=== PATIENT | male | born 1965 | race Hispanic/Latino ===

== ENCOUNTER 2018-09-02 12:03 | Emergency (ER) | payer OTHER ==
--- NOTE | 2018-09-02 14:18 | RAD REPORT ---
EXAM DESCRIPTION: RAD - Foot Left 3 View - 09/02/2018 1:47 pm CLINICAL HISTORY: Left Foot pain FINDINGS: No fracture or dislocation is seen. Hammertoe deformities. First phalanx resected. No bony destructive lesions seen. Vascular calcifications noted. Arthritic changes involve MTP joints
--- NOTE | 2018-09-02 14:25 | EDPHYS ---
Physician Documentation [facility] Name: Denis Bhatt Age: 53 yrs Sex: Male : 1965 Arrival Date: 09/02/2018 Time: 12:07 Bed 20 Private MD: ED Physician Josiah De La Fuente HPI: 09/02 14:29 This 53 yrs old Male presents to ER via Ambulatory with complaints of Foot jr8 pain. 14:29 Onset: The symptoms/episode began/occurred gradually, 1 month(s) ago, and became worse jr8 and became persistent. Associated signs and symptoms: The patient has no apparent associated signs or symptoms. Modifying factors: The patient symptoms are alleviated by nothing, the patient symptoms are aggravated by activity. It is unknown whether or not the patient has had similar symptoms in the past. The patient has not recently seen a physician. Stated that he had a nail go into his foot about 1 month ago. Stated that it barely broke skin. Since then noticed that the puncture site had not been healing well and now getting worse. History of diabetes . Historical: - Allergies: 12:21 No Known Allergies; aj - Home Meds: 12:21 metformin Oral [Active]; Novolog 100 unit/mL Sub-Q soln [Active]; Diazepam Oral aj [Active]; Lortab 7.5 Oral [Active]; atorvastatin oral oral [Active]; Unknown HTN med [Active]; gabapentin oral oral [Active]; - PMHx: 12:21 Hyperlipidemia; Hypertension; Diabetes - IDDM; Chronic pain; Pancreatitis; aj - PSHx: 12:21 Left great toe amputation; Cholecystectomy; aj - Immunization history:: Last tetanus immunization: up to date. - Social history:: Smoking status: Patient uses tobacco products, smokes one pack cigarettes per day. - Ebola Screening: : Patient negative for fever greater than or equal to 101.5 degrees Fahrenheit, and additional compatible Ebola Virus Disease symptoms Patient denies exposure to infectious person Patient denies travel to an Ebola-affected area in the 21 days before illness onset No symptoms or risks identified at this time. ROS: 14:29 Eyes: Negative for injury, pain, redness, and discharge, ENT: Negative for injury, jr8 pain, and discharge, Neck: Negative for injury, pain, and swelling, Cardiovascular: Negative for chest pain, palpitations, and edema, Respiratory: Negative for shortness of breath, cough, wheezing, and pleuritic chest pain, Abdomen/GI: Negative for abdominal pain, nausea, vomiting, diarrhea, and constipation, Back: Negative for injury and pain, MS/Extremity: Negative for injury and deformity, Neuro: Negative for headache, weakness, numbness, tingling, and seizure. 14:29 Skin: Positive for cellulitis. Exam: 14:29 Constitutional: This is a well developed, well nourished patient who is awake, alert, jr8 and in no acute distress. ENT: Nares patent. No nasal discharge, no septal abnormalities noted. Tympanic membranes are normal and external auditory canals are clear. Oropharynx with no redness, swelling, or masses, exudates, or evidence of obstruction, uvula midline. Mucous membranes moist. Neck: Trachea midline, no thyromegaly or masses palpated, and no cervical lymphadenopathy. Supple, full range of motion without nuchal rigidity, or vertebral point tenderness. No Meningismus. Cardiovascular: Regular rate and rhythm with a normal S1 and S2. No gallops, murmurs, or rubs. Normal PMI, no JVD. No pulse deficits. Respiratory: Lungs have equal breath sounds bilaterally, clear to auscultation and percussion. No rales, rhonchi or wheezes noted. No increased work of breathing, no retractions or nasal flaring. Abdomen/GI: Soft, non-tender, with normal bowel sounds. No distension or tympany. No guarding or rebound. No evidence of tenderness throughout. Back: No spinal tenderness. No costovertebral tenderness. Full range of motion. MS/ Extremity: Pulses equal, no cyanosis. Neurovascular intact. Full, normal range of motion. Neuro: Awake and alert, GCS 15, oriented to person, place, time, and situation. Cranial nerves II-XII grossly intact. Motor strength 5/5 in all extremities. Sensory grossly intact. Cerebellar exam normal. Normal gait. 14:29 Skin: Patient has old puncture lynne noted to sole of left foot. Localized infection surrounding puncture lynne noted. No diffuse cellulitis or streaking noted. No swelling to foot. Mild tenderness to affected region . Vital Signs: 12:21 BP 133 / 63; Pulse 99; Resp 20; Temp 97.3; Pulse Ox 98% on R/A; Weight 95.25 kg; Height aj 5 ft. 8 in. (172.72 cm); 14:32 BP 153 / 89; Pulse 88; Resp 17; Pulse Ox 98% on R/A; tw2 12:21 Body Mass Index 31.93 (95.25 kg, 172.72 cm) aj MDM: 13:10 Patient medically screened. jr8 14:24 Data reviewed: vital signs, nurses notes, radiologic studies, plain films, and as a jr8 result, I will discharge patient. Data interpreted: Pulse oximetry: on room air is 98 %. Interpretation: normal. Counseling: I had a detailed discussion with the patient and/or guardian regarding: the historical points, exam findings, and any diagnostic results supporting the discharge/admit diagnosis, radiology results, the need for outpatient follow up, a general surgeon, to return to the emergency department if symptoms worsen or persist or if there are any questions or concerns that arise at home. 09/02 12:28 Order name: Foot Left 3 View XRAY; Complete Time: 14:24 aj Administered Medications: 14:34 Drug: LevaQUIN 500 mg Route: PO; sv 14:34 Follow up: Response: Medication administered at discharge. sv 14:34 Drug: Bactrim (160 mg-800 mg (DS) 1 tablet Route: PO; sv 14:34 Follow up: Response: Medication administered at discharge. sv Disposition: 18:53 Co-signature as Attending Physician, Josiah De La Fuente MD I agree with the assessment and kdr plan of care. Disposition: 09/02/18 14:24 Discharged to Home. Impression: Local infection of the skin and subcutaneous tissue, unspecified. - Condition is Stable. - Discharge Instructions: Cellulitis, Adult, [id number]. - Prescriptions for Levaquin 500 mg Oral Tablet - take 1 tablet by ORAL route once daily for 7 days; 7 tablet. Bactrim DS 800- 160 mg Oral Tablet - take 1 tablet by ORAL route every 12 hours for 10 days; 20 tablet. - Medication Reconciliation Form, Thank You Letter, Antibiotic Education, Prescription Opioid Use form. - Follow up: Keny Neely MD; When: 2 - 3 days; Reason: Recheck today's complaints, Continuance of care, Re-evaluation by your physician. - Problem is new. - Symptoms have improved. Signatures: Dispatcher [employer] EDMS Lainey, SAILAJA Gonsalez RN, Amanda, RN RN aj Rittger, Kevin, MD MD kdr Roszak, Josh, PA PA jr8 Corrections: (The following items were deleted from the chart) 14:36 14:24 09/02/2018 14:24 Discharged to Home. Impression: Local infection of the skin and sv subcutaneous tissue, unspecified. Condition is Stable. Forms are Medication Reconciliation Form, Thank You Letter, Antibiotic Education, Prescription Opioid Use. Follow up: Keny Neely; When: 2 - 3 days; Reason: Recheck today's complaints, Continuance of care, Re-evaluation by your physician. Problem is new. Symptoms have improved. jr8
--- NOTE | 2018-09-02 14:25 | ER ---
Nurse's Notes [facility] Name: Denis Bhatt Age: 53 yrs Sex: Male : 1965 Arrival Date: 09/02/2018 Time: 12:07 Bed 20 Private MD: Diagnosis: Local infection of the skin and subcutaneous tissue, unspecified Presentation: 09/02 12:18 Presenting complaint: Patient states: Non healing wound to ball of left foot after nail aj puncture 1 month ago. Transition of care: patient was not received from another setting of care. Onset of symptoms was August 05, 2018. Risk Assessment: Do you want to hurt yourself or someone else? Patient reports no desire to harm self or others. Initial Sepsis Screen: Does the patient meet any 2 criteria? No. Patient's initial sepsis screen is negative. Does the patient have a suspected source of infection? No. Patient's initial sepsis screen is negative. Care prior to arrival: None. 12:18 Method Of Arrival: Ambulatory aj 12:18 Acuity: RORY 3 aj Triage Assessment: 12:21 General: Appears in no apparent distress. comfortable, Behavior is calm, cooperative, aj appropriate for age. Pain: Complains of pain in left foot. Neuro: Level of Consciousness is awake, alert, obeys commands, Oriented to person, place, time, situation, Appropriate for age. Respiratory: Airway is patent Respiratory effort is even, unlabored, Respiratory pattern is regular, symmetrical. Derm: Skin is intact, is healthy with good turgor, Skin is pink, warm \T\ dry. normal, Wound noted ball of left foot. Historical: - Allergies: 12:21 No Known Allergies; aj - Home Meds: 12:21 metformin Oral [Active]; Novolog 100 unit/mL Sub-Q soln [Active]; Diazepam Oral aj [Active]; Lortab 7.5 Oral [Active]; atorvastatin oral oral [Active]; Unknown HTN med [Active]; gabapentin oral oral [Active]; - PMHx: 12:21 Hyperlipidemia; Hypertension; Diabetes - IDDM; Chronic pain; Pancreatitis; aj - PSHx: 12:21 Left great toe amputation; Cholecystectomy; aj - Immunization history:: Last tetanus immunization: up to date. - Social history:: Smoking status: Patient uses tobacco products, smokes one pack cigarettes per day. - Ebola Screening: : Patient negative for fever greater than or equal to 101.5 degrees Fahrenheit, and additional compatible Ebola Virus Disease symptoms Patient denies exposure to infectious person Patient denies travel to an Ebola-affected area in the 21 days before illness onset No symptoms or risks identified at this time. Screenin:08 Abuse screen: Denies threats or abuse. Denies injuries from another. Nutritional sv screening: No deficits noted. Tuberculosis screening: No symptoms or risk factors identified. Fall Risk None identified. Assessment: 13:06 General: Appears in no apparent distress. comfortable, well developed, Behavior is sv calm, cooperative, appropriate for age. Pain: Denies pain. Neuro: Level of Consciousness is awake, alert, obeys commands, Oriented to person, place, time, situation, Moves all extremities. Full function Gait is steady, Speech is normal. Respiratory: Respiratory effort is even, unlabored, Respiratory pattern is regular, symmetrical. Derm: Skin is pink, warm \T\ dry. Wound noted ball of left foot Wound is part is callused and part is soft about an inch in length. Musculoskeletal: Amputation of healed with no open areas Range of motion: intact in all extremities. 14:35 Reassessment: Patient appears in no apparent distress at this time. No changes from sv previously documented assessment. Patient and/or family updated on plan of care and expected duration. Pain level reassessed. Patient is alert, oriented x 3, equal unlabored respirations, skin warm/dry/pink. Vital Signs: 12:21 BP 133 / 63; Pulse 99; Resp 20; Temp 97.3; Pulse Ox 98% on R/A; Weight 95.25 kg; Height aj 5 ft. 8 in. (172.72 cm); 14:32 BP 153 / 89; Pulse 88; Resp 17; Pulse Ox 98% on R/A; tw2 12:21 Body Mass Index 31.93 (95.25 kg, 172.72 cm) ED Course: 12:07 Patient arrived in ED. rg4 12:18 Triage completed. aj 12:21 Arm band placed on right wrist. Patient placed in waiting room, Patient notified of aj wait time. 12:56 Sunshine Retana, RN is Primary Nurse. sv 13:08 Patient has correct armband on for positive identification. Bed in low position. Door sv closed. Head of bed elevated. 13:09 Yoel Eason PA is PHCP. jr8 13:09 Josiah De La Fuente MD is Attending Physician. jr8 13:25 X-ray(s) taken. sv 13:36 X-ray completed. Portable x-ray completed in exam room. Patient tolerated procedure jb2 well. 13:48 Foot Left 3 View XRAY In Process Unspecified. EDMS 13:48 Foot Left 3 View XRAY Sent. sv 14:24 Keny Neely MD is Referral Physician. jr8 14:35 No provider procedures requiring assistance completed. Patient did not have IV access sv during this emergency room visit. Administered Medications: 14:34 Drug: LevaQUIN 500 mg Route: PO; sv 14:34 Follow up: Response: Medication administered at discharge. sv 14:34 Drug: Bactrim (160 mg-800 mg (DS) 1 tablet Route: PO; sv 14:34 Follow up: Response: Medication administered at discharge. sv Outcome: 14:24 Discharge ordered by MD. jr8 14:35 Discharged to home ambulatory, with family. sv 14:35 Condition: stable 14:35 Discharge instructions given to patient, Instructed on discharge instructions, follow up and referral plans. medication usage, Demonstrated understanding of instructions, follow-up care, medications, Prescriptions given X 2. 14:36 Patient left the ED. sv Signatures: Dispatcher [employer] Sunshine Curry RN RN sv Myers, Amanda RN Juan Antonio Hopson jb2 Yoel Eason PA PA jr8 Cecilia Strong RN RN 2 Mary Cordoba rg4 Corrections: (The following items were deleted from the chart) 12:24 12:21 Arm band placed on right wrist. Patient placed in an exam room, nury 13:09 13:06 Musculoskeletal: Range of motion: intact in all extremities, sv sv
[2018-09-02] MEDS ORDERED: levoFLOXacin 500 MG TAB ONE (14:40)
[2018-09-02] MEDS ORDERED: SMZ./TMP. 800/160 MG TABLET ONE (14:40)
== END 2018-09-02 14:36 | disposition home or self-care (01) ==
LOC: ER 12:03
DX: L08.9 Local infection of the skin and subcutaneous tissue, unspecified (principal); I10 Essential (primary) hypertension; E11.9 Type 2 diabetes mellitus without complications; F17.210 Nicotine dependence, cigarettes, uncomplicated; Z79.4 Long term (current) use of insulin
CPT/HCPCS: 99283

== ENCOUNTER 2019-05-09 10:43 | Inpatient (IN) | payer OTHER ==
[2019-05-09] MEDS ORDERED: PIPER/TAZO/NS 3.375gm 3.375 GM/100 ML BAG ONE (11:52)
[2019-05-09] MEDS ORDERED: VANCOMYCIN/NS 1 gm 1 GM/250 ML BAG IV ONE (12:00)
[2019-05-09 12:41] LABS: Absolute Lymphocytes (CBC) 1.5 K/uL (0.7-4.9); Basophils % 0.8 % (0-1.3); Hematocrit 36.1 % (39.6-49.0); Lymphocytes % 23.7 % (15.3-44.8); MPV 9.8 fL (7.6-11.3); RBC Red Blood Cell Count 4.16 M/uL (4.33-5.43)
[2019-05-09 12:42] LABS: Protime INR 0.83
[2019-05-09 13:15] LABS: ALT/SGPT 43 U/L (12-78); AST/SGOT 15 U/L (15-37); Albumin 3.3 g/dL (3.4-5.0); Alkaline Phosphatase 119 U/L (45-117); BUN Blood Urea Nitrogen 50 mg/dL (7-18); Bicarbonate 25 mmol/L (21-32); Bilirubin Direct < 0.1 mg/dL (0-0.2); Bilirubin Total 0.2 mg/dL (0.2-1.0); Glucose Level 701 mg/dL (74-106); Protein, Total 7.4 g/dL (6.4-8.2); Sodium Level 129 mmol/L (136-145)
[2019-05-09 13:18] LABS: Potassium 6.7 mmol/L (3.5-5.1)
[2019-05-09 13:20] LABS: Urine Blood TRACE (NEG); Urine Glucose 3+ (NEG); Urine Protein 1+ (NEG); Urine pH 6.5 (5.0-7.0)
--- NOTE | 2019-05-09 13:21 | RAD REPORT ---
EXAM DESCRIPTION: RAD - Foot Left 3 View - 05/09/2019 12:09 pm CLINICAL HISTORY: Soft tissue wound on the ball of the foot COMPARISON: Left foot August 2018 FINDINGS: No fracture is identified. Patient is in a chronic extension position of the second-fifth MTP joints. This is most pronounced at the second MTP joint were there is subluxation. Patient has ch ronic flexion at the PIP joints of the second- fifth toes. First toe has been resected. The alignment and positioning of the toes matches the 2018 comparison study. No destructive changes s een that would indicate osteomyelitis. Osteomyelitis can exist prior to radiographic bone destruction . Soft tissue wound is present between the first and second metatarsal heads. No foreign body in the soft tissues. IMPRESSION: No destructive bone process seen that would indicate osteomyelitis. Bone infection can e xist prior to radiographic bone destruction. Soft tissue wound in the plantar and distal aspects near the first and second metatarsal heads. No fo reign body or air confirmed in the soft tissues.
[2019-05-09] MEDS ORDERED: NA CHLORIDE 0.9% 1,000 ML ONE (13:50)
[2019-05-09 13:57] LABS: Urine Bacteria <20 /HPF (NONE SEEN); Urine Culture Reflex Order NOT NEEDED
[2019-05-09 15:38] LABS: Potassium 4.8 mmol/L (3.5-5.1)
--- NOTE | 2019-05-09 17:35 | ER ---
Nurse's Notes [facility] Name: Denis Bhatt Age: 54 yrs Sex: Male : 1965 Arrival Date: 05/09/2019 Time: 10:48 Bed 20 Private MD: Diagnosis: diabetes with hyperglycemia;hyperkalemia;renal insufficiency;diabetic foot ulcer Presentation: 05/09 10:49 Presenting complaint: Wound on ball of left foot x 2 months. Transition of care: hb patient was not received from another setting of care. Onset of symptoms is unknown. Risk Assessment: Do you want to hurt yourself or someone else? Patient reports no desire to harm self or others. Care prior to arrival: None. 10:49 Method Of Arrival: Ambulatory hb 10:49 Acuity: RORY 3 hb Triage Assessment: 10:57 General: Appears in no apparent distress. comfortable, Behavior is calm, cooperative, bp appropriate for age. Pain: Complains of pain in left foot. EENT: No deficits noted. Neuro: No deficits noted. Cardiovascular: No deficits noted. Respiratory: No deficits noted. GI: No signs and/or symptoms were reported involving the gastrointestinal system. : No signs and/or symptoms were reported regarding the genitourinary system. Derm: No deficits noted. Musculoskeletal: No deficits noted. Injury Description: DIABETIC FOOT WOUND, LEFT FOOT. Historical: - Allergies: 10:51 No Known Allergies; hb - Home Meds: 10:51 atorvastatin Oral [Active]; diazepam Oral [Active]; gabapentin Oral [Active]; Lortab hb 7.5 Oral [Active]; Metformin Oral [Active]; Novolog 100 unit/mL Sub-Q soln [Active]; Unknown HTN med [Active]; - PMHx: 10:51 Chronic pain; Diabetes - IDDM; Hypertension; Pancreatitis; Hyperlipidemia; hb - PSHx: 10:51 Left great toe amputation; Cholecystectomy; hb - Immunization history:: Adult Immunizations up to date. - Social history:: Smoking status: Patient uses tobacco products, smokes one pack cigarettes per day. - Ebola Screening: : No symptoms or risks identified at this time. - Family history:: not pertinent. - Hospitalizations: : No recent hospitalization is reported. Screenin:58 Abuse screen: Denies threats or abuse. Denies injuries from another. Nutritional bp screening: No deficits noted. Tuberculosis screening: No symptoms or risk factors identified. Fall Risk None identified. Assessment: 10:58 General: SEE TRIAGE NOTE. bp 13:04 Reassessment: ABX INFUSING. bp 13:58 Reassessment: REPEAT BMP AND ACCUCHECK DUE AFTER NS. bp 16:00 Reassessment: ALL CURRENT ORDERS COMPLETED, ADMIT PENDING. bp 18:21 Reassessment: ADMIT MD AT B/S. bp 18:36 Reassessment: ADMIT ON HOLD FOR NEXT SHIFT. bp 19:18 General: Appears in no apparent distress. uncomfortable, Behavior is calm, cooperative, jb4 appropriate for age. Pain: Complains of pain in heel of left foot Pain does not radiate. Pain currently is 9 out of 10 on a pain scale. Neuro: Level of Consciousness is awake, alert, obeys commands, Oriented to person, place, time, situation. Cardiovascular: Patient's skin is warm and dry. Respiratory: Airway is patent Respiratory effort is even, unlabored, Respiratory pattern is regular, symmetrical. GI: No deficits noted. No signs and/or symptoms were reported involving the gastrointestinal system. : No deficits noted. No signs and/or symptoms were reported regarding the genitourinary system. EENT: No deficits noted. No signs and/or symptoms were reported regarding the EENT system. Derm: Skin is pink, warm \T\ dry. Wound noted heel of left foot. Musculoskeletal: Circulation, motion, and sensation intact. Range of motion: intact in all extremities. 19:57 Reassessment: Patient appears in no apparent distress at this time. Patient and/or jb4 family updated on plan of care and expected duration. Pain level reassessed. Patient is alert, oriented x 3, equal unlabored respirations, skin warm/dry/pink. Report called to SAILAJA Hilliard. 20:04 Reassessment: Patient appears in no apparent distress at this time. Patient is alert, jb4 oriented x 3, equal unlabored respirations, skin warm/dry/pink. PT transferred up stairs via wheelchair, IV saline lock. Vital Signs: 10:51 BP 131 / 75; Pulse 16; Resp 91; Temp 98; Pulse Ox 100% on R/A; Weight 88.45 kg; Height hb 5 ft. 8 in. (172.72 cm); Pain 9/10; 12:00 BP 152 / 88; Pulse 89; Resp 16; Pulse Ox 96% ; bp 13:00 BP 173 / 95; Pulse 90; Resp 16; Pulse Ox 98% ; bp 13:59 BP 167 / 106; Pulse 88; Resp 16; Pulse Ox 98% ; bp 16:00 BP 153 / 85; Pulse 85; Resp 16; Pulse Ox 98% ; bp 18:00 BP 165 / 87; Pulse 91; Resp 16; Pulse Ox 100% ; bp 18:33 BP 134 / 89; Pulse 92; Resp 16; Pulse Ox 99% ; bp 19:18 BP 141 / 97; Pulse 109; Resp 16; Pulse Ox 100% on R/A; Pain 9/10; jb4 20:00 BP 151 / 101; Pulse 106; Resp 18; Pulse Ox 100% on R/A; jb4 10:51 Body Mass Index 29.65 (88.45 kg, 172.72 cm) hb ED Course: 10:48 Patient arrived in ED. mr 10:50 Triage completed. hb 10:51 Arm band placed on right wrist. hb 10:52 Dylan Shah, RN is Primary Nurse. bp 10:58 Patient has correct armband on for positive identification. Bed in low position. Call bp light in reach. Side rails up X2. Adult w/ patient. 11:04 Tashi Moseley MD is Attending Physician. wa 12:06 EKG done, by division order technician. reviewed by Tashi Moseley MD. at1 12:14 Foot Left 3 View XRAY In Process Unspecified. EDMS 12:15 Inserted saline lock: 20 gauge in right antecubital area, using aseptic technique. bp Blood collected. 15:00 Repeat lab(s) drawn. by wa, sent to lab. [facility] 17:31 Socorro Peterson MD is Hospitalizing Provider. wa 19:01 Primary Nurse role handed off by Dylan Shah, SAILAJA [facility] 19:01 Edilson Flores, SAILAJA is Primary Nurse. jb4 20:00 No provider procedures requiring assistance completed. Patient admitted, IV remains in jb4 place. Administered Medications: 12:00 Drug: Zosyn 3.375 grams Route: IVPB; Infused Over: 60 mins; Site: right antecubital; bp 13:04 Follow up: IV Status: Completed infusion; IV Intake: 100ml bp 13:04 Drug: vancoMYCIN 1 grams Route: IVPB; Infused Over: 2 hrs; Site: right antecubital; bp 15:00 Follow up: IV Status: Completed infusion; IV Intake: 500ml bp 13:50 Drug: NS 0.9% 1000 ml Route: IV; Rate: 1 bolus; Site: right antecubital; bp 15:32 Follow up: IV Status: Completed infusion; IV Intake: 1000ml bp Point of Care Testing: Blood Glucose: 14:11 Blood Glucose: 497 mg/dL; dh3 14:11 per physician follow up glucose level per [facility] dh3 Ranges: Intake: 13:04 IV: 100ml; Total: 100ml. bp 15:00 IV: 500ml; Total: 600ml. bp 15:32 IV: 1000ml; Total: 1600ml. bp Outcome: 17:34 Decision to Hospitalize by Provider. wa 20:00 Admitted to Med/surg accompanied by tech, via wheelchair, room 221, with chart, Report jb4 called to SAILAJA Hilliard 20:00 Condition: stable 20:00 Instructed on the need for admit, Demonstrated understanding of instructions. 20:11 Patient left the ED. jb4 Signatures: Dispatcher [employer] EDDE Keke Barreto, Faith, hand turner EKG Tat1 Terri Muñoz RN RN hb Bryson, James, RN RN jb4 Lizzie De La Garza [facility] Tashi Moseley MD MD wa Peltier, Brian RN RN bp Corrections: (The following items were deleted from the chart) 14:54 14:11 Blood Glucose: Blood Glucose [id number]=551 mg/dL. 3 3
--- NOTE | 2019-05-09 17:36 | EDPHYS ---
Physician Documentation [facility] Name: Denis Bhatt Age: 54 yrs Sex: Male : 1965 Arrival Date: 05/09/2019 Time: 10:48 Bed 20 Private MD: ED Physician Tashi Moseley HPI: 05/09 12:56 This 54 yrs old Male presents to ER via Ambulatory with complaints of Infected wa Foot. 12:56 The patient presents with plantar L foot ulcer. The complaints affect the ball of left wa foot. Context: unknown cause. h/o DM. noted x 2 months. Onset: The symptoms/episode began/occurred 2 month(s) ago. Modifying factors: The symptoms are alleviated by nothing, the symptoms are aggravated by nothing. Associated signs and symptoms: Pertinent positives: swelling, pain, Pertinent negatives: fever, nausea, numbness, rash, tingling, vomiting, warmth, weakness. Severity of symptoms: At their worst the symptoms were moderate, in the emergency department the symptoms are actually worse, moderately. The patient has experienced a previous episode, had L great toe amputated. The patient has not recently seen a physician. h/o DM. ulcer at ball of L foot x 2 months. states pain worsening. Historical: - Allergies: 10:51 No Known Allergies; hb - Home Meds: 10:51 atorvastatin Oral [Active]; diazepam Oral [Active]; gabapentin Oral [Active]; Lortab hb 7.5 Oral [Active]; Metformin Oral [Active]; Novolog 100 unit/mL Sub-Q soln [Active]; Unknown HTN med [Active]; - PMHx: 10:51 Chronic pain; Diabetes - IDDM; Hypertension; Pancreatitis; Hyperlipidemia; hb - PSHx: 10:51 Left great toe amputation; Cholecystectomy; hb - Immunization history:: Adult Immunizations up to date. - Social history:: Smoking status: Patient uses tobacco products, smokes one pack cigarettes per day. - Ebola Screening: : No symptoms or risks identified at this time. - Family history:: not pertinent. - Hospitalizations: : No recent hospitalization is reported. ROS: 13:01 MS/extremity: Positive for tenderness, ulcer, of the ball of left foot. wa 13:01 Constitutional: Negative for fever, chills, and weight loss, Eyes: Negative for injury, pain, redness, and discharge, ENT: Negative for injury, pain, and discharge, Neck: Negative for injury, pain, and swelling, Cardiovascular: Negative for chest pain, palpitations, and edema, Respiratory: Negative for shortness of breath, cough, wheezing, and pleuritic chest pain, Abdomen/GI: Negative for abdominal pain, nausea, vomiting, diarrhea, and constipation, Back: Negative for injury and pain, : Negative for injury, bleeding, discharge, and swelling, Neuro: Negative for headache, weakness, numbness, tingling, and seizure, Psych: Negative for depression, anxiety, suicide ideation, homicidal ideation, and hallucinations. 13:01 MS/extremity: Positive for pain, tenderness, of the ball of left foot. 13:01 Skin: Positive for ulceration, of the ball of left foot. 13:01 All other systems are negative. Exam: 13:02 Constitutional: This is a well developed, well nourished patient who is awake, alert, wa and in no acute distress. Head/Face: Normocephalic, atraumatic. Eyes: Pupils equal round and reactive to light, extra-ocular motions intact. Lids and lashes normal. Conjunctiva and sclera are non-icteric and not injected. Cornea within normal limits. Periorbital areas with no swelling, redness, or edema. ENT: Nares patent. No nasal discharge, no septal abnormalities noted. Tympanic membranes are normal and external auditory canals are clear. Oropharynx with no redness, swelling, or masses, exudates, or evidence of obstruction, uvula midline. Mucous membranes moist. Neck: Trachea midline, no thyromegaly or masses palpated, and no cervical lymphadenopathy. Supple, full range of motion without nuchal rigidity, or vertebral point tenderness. No Meningismus. Chest/axilla: Normal chest wall appearance and motion. Nontender with no deformity. No lesions are appreciated. Cardiovascular: Regular rate and rhythm with a normal S1 and S2. No gallops, murmurs, or rubs. Normal PMI, no JVD. No pulse deficits. Respiratory: Lungs have equal breath sounds bilaterally, clear to auscultation and percussion. No rales, rhonchi or wheezes noted. No increased work of breathing, no retractions or nasal flaring. Abdomen/GI: Soft, non-tender, with normal bowel sounds. No distension or tympany. No guarding or rebound. No evidence of tenderness throughout. Back: No spinal tenderness. No costovertebral tenderness. Full range of motion. Neuro: Awake and alert, GCS 15, oriented to person, place, time, and situation. Cranial nerves II-XII grossly intact. Motor strength 5/5 in all extremities. Sensory grossly intact. Cerebellar exam normal. Normal gait. Psych: Awake, alert, with orientation to person, place and time. Behavior, mood, and affect are within normal limits. 13:02 Musculoskeletal/extremity: Extremities: noted in the ball of left foot: ulcer. 13:02 Skin: lesion(s), noted, and can be described as ulcerated, located on the ball of left foot. Vital Signs: 10:51 BP 131 / 75; Pulse 16; Resp 91; Temp 98; Pulse Ox 100% on R/A; Weight 88.45 kg; Height hb 5 ft. 8 in. (172.72 cm); Pain 9/10; 12:00 BP 152 / 88; Pulse 89; Resp 16; Pulse Ox 96% ; bp 13:00 BP 173 / 95; Pulse 90; Resp 16; Pulse Ox 98% ; bp 13:59 BP 167 / 106; Pulse 88; Resp 16; Pulse Ox 98% ; bp 16:00 BP 153 / 85; Pulse 85; Resp 16; Pulse Ox 98% ; bp 18:00 BP 165 / 87; Pulse 91; Resp 16; Pulse Ox 100% ; bp 18:33 BP 134 / 89; Pulse 92; Resp 16; Pulse Ox 99% ; bp 19:18 BP 141 / 97; Pulse 109; Resp 16; Pulse Ox 100% on R/A; Pain 9/10; jb4 20:00 BP 151 / 101; Pulse 106; Resp 18; Pulse Ox 100% on R/A; jb4 10:51 Body Mass Index 29.65 (88.45 kg, 172.72 cm) MDM: 11:04 Patient medically screened. ak 13:04 Differential diagnosis: diabetic foot ulcer. r/o osteo. Data reviewed: vital signs, wa nurses notes. 17:27 Test interpretation: by ED physician or midlevel provider: x-ray: no obvious bony wa involvement. labs noted for renal insufficiency and hyperkalemia. Response to treatment: the patient's symptoms have markedly improved after treatment. Physician consultation: Socorro Peterson MD. 17:59 Test interpretation: by ED physician or midlevel provider: EKG: HR 86. sinus. peaked T wa waves. LAD. RBBB. 05/09 11:30 Order name: Blood Culture Adult (2) ak 05/09 11:30 Order name: Basic Metabolic Panel; Complete Time: 13:21 ak 05/09 11:30 Order name: CBC with Diff; Complete Time: 12:55 ak 05/09 11:30 Order name: Lactate; Complete Time: 12:55 ak 05/09 11:30 Order name: LFT's; Complete Time: 13:21 ak 05/09 11:30 Order name: Protime (+inr); Complete Time: 12:55 ak 05/09 11:30 Order name: Urine Microscopic Only; Complete Time: 15:00 ak 05/09 11:30 Order name: Foot Left 3 View XRAY; Complete Time: 13:25 ak 05/09 13:18 Order name: Urine Dipstick--Ancillary (enter results); Complete Time: 13:25 05/09 13:41 Order name: Basic Metabolic Panel; Complete Time: 15:41 ak 05/09 14:16 Order name: Glucose, Ancillary Testing; Complete Time: 15:00 EDTN 05/09 11:30 Order name: Cardiac monitoring; Complete Time: 11:42 ak 05/09 11:30 Order name: EKG - Nurse/Tech; Complete Time: 12:26 ak 05/09 11:30 Order name: IV Saline Lock - Large Bore; Complete Time: 12:26 ak 05/09 11:30 Order name: Labs collected and sent; Complete Time: 12:26 ak 05/09 11:30 Order name: O2 Sat Monitoring; Complete Time: 11:43 ak 05/09 11:30 Order name: Urine Dipstick-Ancillary (obtain specimen); Complete Time: 13:04 ak 05/09 13:04 Order name: EKG Electrocardiogram; Complete Time: 13:59 EDTN 05/09 13:45 Order name: Accucheck Blood Glucose; Complete Time: 14:12 ak Administered Medications: 12:00 Drug: Zosyn 3.375 grams Route: IVPB; Infused Over: 60 mins; Site: right antecubital; bp 13:04 Follow up: IV Status: Completed infusion; IV Intake: 100ml bp 13:04 Drug: vancoMYCIN 1 grams Route: IVPB; Infused Over: 2 hrs; Site: right antecubital; bp 15:00 Follow up: IV Status: Completed infusion; IV Intake: 500ml bp 13:50 Drug: NS 0.9% 1000 ml Route: IV; Rate: 1 bolus; Site: right antecubital; bp 15:32 Follow up: IV Status: Completed infusion; IV Intake: 1000ml bp Point of Care Testing: Blood Glucose: 14:11 Blood Glucose: 497 mg/dL; dh3 14:11 per physician follow up glucose level per [facility] dh3 Ranges: Critical Glucose Levels:Adult <50 mg/dl or >400 mg/dl <40 mg/dl or >180 mg/dl Disposition: 05/09/19 17:34 Hospitalization ordered by Socorro Peterson for Observation. Preliminary diagnosis are diabetes with hyperglycemia, hyperkalemia, renal insufficiency, diabetic foot ulcer. - Bed requested for Telemetry/MedSurg (observation). - Status is Observation. jb4 - Condition is Stable. - Problem is new. - Symptoms have improved. UTI on Admission? No Critical care time excluding procedures: 17:29 Critical care time: Bedside Care: 15 minutes, Consultation: 5 minutes, Family wa Intervention: 10 minutes. Total time: 30 minutes Signatures: Dispatcher [employer] EDMS Xiomara Astudillo Josh, PA PA jr8 Terri Muñoz, RN SAILAJA Edilson Flores, SAILAJA RN jb4 Tashi Moseley MD MD wa Peltier, Brian, SAILAJA RN bp Corrections: (The following items were deleted from the chart) 18:30 17:34 Hospitalization Ordered by Socorro Peterson MD for Observation. Preliminary diagnosis bd is diabetes with hyperglycemia; hyperkalemia; renal insufficiency; diabetic foot ulcer. Bed requested for Telemetry/MedSurg (observation). Status is Observation. Condition is Stable. Problem is new. Symptoms have improved. UTI on Admission? No. wa 20:11 18:30 05/09/2019 17:34 Hospitalization Ordered by Socorro Peterson MD for Observation. jb4 Preliminary diagnosis is diabetes with hyperglycemia; hyperkalemia; renal insufficiency; diabetic foot ulcer. Bed requested for Telemetry/MedSurg (observation). Status is Observation. Condition is Stable. Problem is new. Symptoms have improved. UTI on Admission? No. bd
--- NOTE | 2019-05-09 17:47 | P.HP ---
Certification for Inpatient Patient admitted to: Observation Practitioner: I am a practitioner with admitting privileges, knowledge of patient current condition, hospital course, and medical plan of care. Services: Services provided to patient in accordance with Admission requirements found in Title 42 Section 412.3 of the Code of Federal Regulations Patient History Date of Service: 05/09/19 Reason for admission: Diabetic foot ulcer History of Present Illness: This is a 54-year-old male with history of diabetes mellitus type 2, insulin dependent, hypertension, hyperlipidemia admitted for diabetic foot ulcer. Patient states that about a month ago he had a nail that barely grazed his foot , since then his wound has not been healing. This has also gotten progressively worse. Therefore he came to the ER. In the ER, his vital signs were 133/63, heart rate of 99, respirations of 20, afebrile at 97.3 and 98% on room air. He has a BMI of 31. His labs were remarkable for a creatinine of 1.39. BUN of 45, blood sugar greater than 500. Foot x-ray was done where his wound was common showed soft tissue wound and plantar, distal aspects near the 1st and 2nd metatarsal head. No evidence of osteomyelitis. In the ER, he received vancomycin and Zosyn along with IV fluids. He was then referred for admission for further management of his diabetic foot ulcers as well as uncontrolled diabetes mellitus. At The time of my exam, he was alert oriented x3, no acute distress and hemodynamically stable. He was actually outside the ER smoking. Allergies No Known Allergies Allergy (Unverified 05/09/19 11:57) Home medications list reviewed: Yes - Past Medical/Surgical History Diabetic: Yes -: Diabetes mellitus, type 2, insulin dependent -: Hyperlipidemia -: Chronic pain Review of Systems 10-point ROS is otherwise unremarkable Physical Examination - Physical Exam General: Alert, In no apparent distress HEENT: Atraumatic, PERRLA, Mucous membr. moist/pink, EOMI, Sclerae nonicteric Neck: Supple, 2+ carotid pulse no bruit, No LAD, Without JVD or thyroid abnormality Respiratory: Clear to auscultation bilaterally, Normal air movement Cardiovascular: Regular rate/rhythm, Normal S1 S2 Gastrointestinal: Normal bowel sounds, No tenderness Musculoskeletal: No tenderness, Other (great toe amputated, left foot) Integumentary: Diabetic ulcer Neurological: Normal gait, Normal speech, Normal strength at 5/5 x4 extr, Normal tone, Normal affect Lymphatics: No axilla or inguinal lymphadenopathy - Studies Laboratory Data (last 24 hrs) 05/09/19 15:00: Sodium 136, Potassium 4.8, BUN 45 H, Creatinine 1.39 H, Glucose 473 H* 05/09/19 12:15: PT 9.9, INR 0.83 05/09/19 12:15: WBC 6.2, Hgb 11.7 L, Hct 36.1 L, Plt Count 233 05/09/19 12:15: Sodium 129 L, Potassium 6.7 H*, BUN 50 H, Creatinine 1.64 H, Glucose 701 H*, Total Bilirubin 0.2, AST 15, ALT 43, Alkaline Phosphatase 119 H Assessment and Plan - Problems (Diagnosis) (1) Diabetic foot ulcer Current Visit: Yes Status: Acute Plan: Likely secondary to uncontrolled diabetes. -wound care consult -IV antibiotics with vancomycin -will get general surgery consultation -he will need strict control of his blood sugars Qualifiers: Diabetic foot ulcer location: unspecified part of foot Diabetes mellitus type: type 2 Laterality: left Non-pressure ulcer stage: limited to breakdown of skin Qualified Code(s): E11.621 - Type 2 diabetes mellitus with foot ulcer; L97.521 - Non-pressure chronic ulcer of other part of left foot limited to breakdown of skin (2) Cellulitis in diabetic foot Current Visit: Yes Status: Acute Plan: Continue IV antibiotics (3) Diabetes mellitus Current Visit: Yes Status: Acute Plan: Uncontrolled Diabetes mellitus, likely secondary to non compliance of diet, medications along with the smoking. Accu-Cheks, sliding scale insulin. Will restart home medications/insulin (70/30, 15 units BID). Will monitor blood sugars and adjust as needed. Patient states that he just ran out of insulin this am. -patient educated on diet/-nutrition. -will get student officer consult for further education -May need for further DM resources. Qualifiers: Diabetes mellitus type: type 2 Diabetes mellitus jail insulin use: with supervisor intermediates use Diabetes mellitus complication status: with skin complications Diabetes mellitus complication detail: with foot ulcer Qualified Code(s): E11.621 - Type 2 diabetes mellitus with foot ulcer; L97.509 - Non-pressure chronic ulcer of other part of unspecified foot with unspecified severity; Z79.4 - rodent exterminator (current) use of insulin (4) Acute kidney injury Current Visit: Yes Status: Acute Plan: Versus chronic kidney disease due to underlying long-standing, uncontrolled diabetes - will continue IV fluids and continue to monitor labs - avoid nephrotoxic medications - will get nephrology consult with continues to worsen (5) Hyperlipidemia Current Visit: No Status: Chronic Plan: Stable, continue home medications Qualifiers: Hyperlipidemia type: unspecified Qualified Code(s): E78.5 - Hyperlipidemia , unspecified (6) Chronic pain Current Visit: No Status: Chronic Plan: Will continue home medication Qualifiers: Chronic pain type: other chronic pain Qualified Code(s): G89.29 - Other chronic pain (7) Obesity Current Visit: No Status: Chronic Qualifiers: Obesity type: due to excess calories Obesity classification: adult class 1 (BMI 30 - 34.9) Serious obesity comorbidity presence: without serious comorbidity Body mass index: BMI 31.0-31.9 Qualified Code(s): E66.09 - Other obesity due to excess calories; Z68.31 - Body mass index (BMI) 31.0-31.9, adult (8) Non-compliance Current Visit: Yes Status: Acute (9) Nicotine dependence Current Visit: No Status: Chronic Plan: counseled on smoking cessation, greater than 10 min Qualifiers: Nicotine product type: cigarettes Substance use status: uncomplicated Qualified Code(s): F17.210 - Nicotine dependence, cigarettes, uncomplicated (10) Hypertension Current Visit: Yes Status: Acute Plan: Patient states he has a hx of HTN, was on blood pressure medications that he no longer takes. He does not remember which on and has been off of it for over a yr now. his BP stable here. Will monitor and add medication (lisinopril) if needed. Qualifiers: Hypertension type: essential hypertension Qualified Code(s): I10 - Essential (primary) hypertension - Plan DVT prophylaxis: Lovenox GI prophylaxis: None Diet: Diabetic Disposition: Pending symptomatic improvement - Advance Directives Does patient have a Living Will: No Does patient have a Durable POA for Healthcare: No
[2019-05-09] MEDS ORDERED: GLUCAGON 1 MG/VIAL IM PRN (20:20)
[2019-05-09] MEDS ORDERED: D50W 25 GM/50 ML SYRINGE IV PRN (20:20)
[2019-05-09] MEDS ORDERED: NA CHLORIDE 0.9% 1,000 ML IV SCH (20:20)
[2019-05-09] MEDS ORDERED: ALBUTEROL 2.5 MG/3 ML NEB SOL NEB PRN (20:20)
[2019-05-09] MEDS ORDERED: VANCOMYCIN 1.75 GM in NA CHLORIDE 0.9% 500 ML IVPB SCH (21:00)
[2019-05-09] MEDS: NA CHLORIDE 0.9% 1,000 ML IV SCH (21:33)
[2019-05-09] MEDS: MORPHINE 2 MG/ML SYR IV PRN (21:34)
[2019-05-09] MEDS: INSULIN -REGULAR HUMAN 50 UNIT/0.5 ML ML SQ SCH (21:34)
[2019-05-10] MEDS: VANCOMYCIN 1 GM/VIAL ONE ×2 (04:30→06:13)
[2019-05-10] MEDS: NA CHLORIDE 0.9% 500 ML ONE ×2 (04:30→06:14)
[2019-05-10 05:29] LABS: Absolute Lymphocytes (CBC) 2.2 K/uL (0.7-4.9); Basophils % 0.8 % (0-1.3); Hematocrit 33.5 % (39.6-49.0); Lymphocytes % 34.1 % (15.3-44.8); MPV 9.4 fL (7.6-11.3); RBC Red Blood Cell Count 3.91 M/uL (4.33-5.43)
[2019-05-10 05:48] LABS: Albumin 2.9 g/dL (3.4-5.0); Bilirubin Total 0.2 mg/dL (0.2-1.0); Magnesium 2.3 mg/dL (1.8-2.4); Potassium 4.6 mmol/L (3.5-5.1); Protein, Total 6.3 g/dL (6.4-8.2)
[2019-05-10] MEDS: MORPHINE 2 MG/ML SYR IV PRN ×3 (06:22→18:24)
[2019-05-10] MEDS ORDERED: VANCOMYCIN 1.75 GM in NA CHLORIDE 0.9% 500 ML IVPB SCH (07:00)
--- NOTE | 2019-05-10 07:38 | EKG ---
Test Date: 2019-05-09 Test Time: 11:55:53 Ballet Professor: KATHRYN MEASUREMENT RESULTS: Intervals: Rate: 86 AK: 176 QRSD: 114 QT: 344 QTc: 411 Street: P: 46 AK: 176 QRS: -69 T: 49 INTERPRETIVE STATEMENTS: Normal sinus rhythm Left anterior fascicular block Abnormal ECG No previous ECG available for comparison Electronically Signed On 05-10-19 07:37:12 CDT by Giancarlo Mena
[2019-05-10] MEDS: ENOXAPARIN 40 MG/0.4 ML SQ SCH (08:21)
[2019-05-10] MEDS: INSULIN -REGULAR HUMAN 50 UNIT/0.5 ML ML SQ SCH ×4 (08:21→21:00)
[2019-05-10] MEDS: INSULIN 70/30 100 UNITS/ML SQ SCH ×2 (08:21→17:01)
--- NOTE | 2019-05-10 11:57 | RAD REPORT ---
EXAM DESCRIPTION: US - Upper Lower Extrem Art Multi - 05/10/2019 11:35 am CLINICAL HISTORY: Peripheral vascular disease, leg pain, left foot wound COMPARISON: None. TECHNIQUE: Left brachial artery pressure measurement was obtained. Waveforms were obtained along the length of each lower extremity. Ankle pressure measurements were obtained with index values calculat ed. Visual inspection of the lower extremity arterial tree performed. FINDINGS: MILTON values are 1.23 on the right and 1.21 on the left. Visual inspection shows no occlusio n or focal flow restricting lesion. No significant degree of atherosclerotic change seen in the vesse l [place]. Triphasic to biphasic waveform patterns were seen along the length of each lower extremity. Common femoral artery velocity values were 114 cm/second on the right and 122 cm/second on the left. Femoral artery velocity values decreased to 78 cm/second on the right and 81 cm/second on the left. P opliteal artery velocity values were 122 cm/second on the right and 112 cm/second on the left. Social Services Manager ior tibial artery velocity values were 93 cm/second right and 131 cm/second left. Dorsalis pedis velo cities were 91 cm/second right and 89 cm/seconds left. IMPRESSION: MILTON values are both greater than 1.00. Values were 1.23 on the right and 1.21 on the lef t. Visual inspection shows no flow restricting lesion or occlusion. Overall, no significant degree of peripheral vascular disease identifiable.
[2019-05-10] MEDS: NA CHLORIDE 0.9% 1,000 ML IV SCH ×2 (12:22→21:50)
[2019-05-10] MEDS: NICOTINE 21 MG/PAT TD SCH (12:28)
--- NOTE | 2019-05-10 14:49 | CON ---
Date of Consultation: 05/10/2019 Reason For Consultation: Left foot diabetic ulcer. History Of Present Illness: The patient is a 54-year-old gentleman with diabetes, hypertension, and hyperlipidemia, who came in with 2 month history of a callused wound on the left plantar aspect start ed to hurt. He states that he had a nail that barely carlito his foot and since that time his wound blandon s not been healing. He was admitted for IV antibiotics. Also he had very elevated glucose and neede d control of his diabetes. Review of Systems: No sore throat, runny nose, cough, headaches, or dizziness. No chest pain. No fever or chills. Min imal drainage. Review of systems otherwise unremarkable. Past Medical History: Diabetes, hyperlipidemia, hypertension, chronic pain syndrome. Past Surgical History: Left foot first toe amputation. Allergies: NONE. Social History: He does smoke, been counseled. Drinks occasionally. Family History: Noncontributory. Physical Examination: Vital Signs: Stable. He is currently afebrile. General: He is awake, alert, and oriented x3. Head and Neck: Cranial 2 through 12 grossly within normal limits. No neck masses. No JVD. Throat clear. Neck supple. Chest: Clear. Heart: S1, S2. Abdomen: Soft. Extremities: Diminished dorsalis pedis and posterior tibial pulses. Although, he does have hair on his leg and on his toes. On the plantar aspect of the left foot, there is approximately a 3 x 3 cm a tyler of callus with some undermining. I do not know the extent of the wound underneath, but it does n eed to be debrided. There is some necrotic tissue in the center of it. Imaging: His x-ray reviewed, it shows no destructive bony process. Soft tissue wound near the first and second metatarsal head. No foreign body or air confirmed in the tissue. Laboratory Data: Reviewed. White count is 6.3. INR is 0.83. Chemistry shows his sugar to be great er than 473, today is 319. His lactic acid is 0.9. Assessment: A 54-year-old gentleman with multiple medical problems, left foot wound, possible osteom yelitis with possible peripheral vascular disease. Recommendations: Continued IV antibiotics as ordered. Patient will need debridement, however, prior to that we would like to get an MRI to see if the patient has osteomyelitis. Also, we will get an a rterial Doppler to assess his vascular status following which we will make the appropriate decision r egarding surgery. Once discharged, the patient will [facility]. Plan of care discussed in detail with the patient. He understands risks, benefits, and alternatives to the procedure and agrees. MELIA/SOFIYA Voice ID: [id number] Report ID: [id number]
[2019-05-10] MEDS ORDERED: ACETAMINOPHEN 325 MG TABLET PO PRN ×2 (17:01→20:00)
--- NOTE | 2019-05-10 17:04 | PN ---
Date of Progress Note: 05/10/2019 Subjective: Patient is seen and examined. Chart reviewed and case discussed with RN and Dr. Soto. Patient repeatedly going downstairs to smoke. He was counseled extensively. He understands that th is will delay his wound healing. Patient offered nicotine patch. He agrees. Medications: List reviewed. Physical Examination: Vital Signs: Temperature 98, heart rate 88, blood pressure 133/72, respirations 20, O2 96% on room a ir. General: Awake, alert, oriented x3, obese male, in some mild distress. CV: S1, S2. Regular rate and rhythm. Peripheral pulses weak bilaterally. Respiratory: Moving air well bilaterally. No wheezing or stridor. Gastrointestinal: Abdomen is soft, nontender, nondistended. Positive bowel sounds. No guarding or rigidity. Extremities: No clubbing, cyanosis, or edema. Neuro: Cranial nerves 2 through 12 intact grossly. No focal neurological deficit. Speech is normal . Skin: Left foot diabetic foot ulcer with callus. No drainage. Mild tenderness to palpation. Laboratory Data: Sodium 140, potassium 4.6, chloride 110, CO2 of 25, BUN 38, creatinine 1.16, glucos e 238, calcium 8.5, phosphorus 4, magnesium 2.3. WBC 6.3, H and H of 11 and 33.5, platelets 218. Bl ood cultures, no growth to date. Doppler ultrasound, MILTON values both greater than 1. Visual inspect ion shows no flow restricting lesion or occlusion. Overall, no significant degree of peripheral vasc ular disease identifiable. Assessment And Plan: A 54-year-old male with: 1.Diabetic foot ulcer on the left with skin breakdown and callus. We will continue with broad-spect rum IV antibiotics, follow up on cultures. Appreciate Dr. Soto's input. We will obtain MRI of the foot to rule out osteomyelitis. If MRI is negative, patient can be transitioned to oral antibiotics. Will follow up with Dr. Soto regarding debridement. 2.Cellulitis, diabetic foot on the left. Continue with IV antibiotics and follow up on cultures. 3.Acute kidney injury, likely related to dehydration and prerenal azotemia, improved with IV fluids. We will avoid NSAIDs. Outpatient Nephrology followup. We will continue to monitor creatinine enrique ls. 4.Diabetes mellitus type 2 with long-term use of insulin. Patient states he has been out of his ins ulin since moving here from [place]. Patient has hyperglycemia and foot ulcer. We will restart home medications including home insulin dose. We will continue to monitor blood glucose levels and a djust sliding scale insulin as needed. 5.Mixed hyperlipidemia. We will continue home medications. 6.Chronic pain syndrome. Patient is on narcotics at home. 7.Obesity, BMI 30. Counseled. 8.Nicotine dependence with cigarette smoking, uncomplicated. Patient has been counseled, will start on nicotine patch. 9.Noncompliance, intentional. 10.Essential hypertension. We will continue with home medications as appropriate. 11.Deep venous thrombosis prophylaxis addressed. Follow up on MRI. Continue IV antibiotics. Possible I and D. Likely discharge in the next 24 to 48 hours depending on clinical response. /SOFIYA Voice ID: [id number] Report ID: [id number]
[2019-05-10] MEDS ORDERED: HUMALOG MIX 75/25 100 UNITS/ML SQ SCH ×2 (21:00)
[2019-05-10] MEDS: ATORVASTATIN 20 MG TAB PO SCH (21:05)
[2019-05-10] MEDS: DIAZEPAM 5 MG TABLET PO SCH (21:06)
[2019-05-10] MEDS: VANCOMYCIN 1.75 GM in NA CHLORIDE 0.9% 500 ML IVPB SCH (23:00)
[2019-05-11] MEDS: MORPHINE 2 MG/ML SYR IV PRN ×4 (02:36→22:07)
[2019-05-11 05:52] LABS: Absolute Lymphocytes (CBC) 2.7 K/uL (0.7-4.9); Basophils % 0.6 % (0-1.3); Hematocrit 33.9 % (39.6-49.0); Lymphocytes % 40.1 % (15.3-44.8); MPV 9.4 fL (7.6-11.3); RBC Red Blood Cell Count 3.96 M/uL (4.33-5.43)
[2019-05-11 06:09] LABS: Albumin 2.9 g/dL (3.4-5.0); Bilirubin Total 0.2 mg/dL (0.2-1.0); Potassium 4.3 mmol/L (3.5-5.1); Protein, Total 6.3 g/dL (6.4-8.2)
[2019-05-11] MEDS: INSULIN -REGULAR HUMAN 50 UNIT/0.5 ML ML SQ SCH ×4 (07:30→20:22)
--- NOTE | 2019-05-11 08:12 | RAD REPORT ---
EXAM DESCRIPTION: MRI - Foot Left Wo Cont - 05/10/2019 8:12 pm CLINICAL HISTORY: Foot pain, soft tissue wound plantar surface near the second and third metatarsal heads, suspected osteomyelitis COMPARISON: Left foot films May 09, 2019 TECHNIQUE: Multiplanar imaging of the left foot performed using T1 weighted, T1 fat saturation, T2 f at saturation and T2 stir sequencing. FINDINGS: First toe has been resected. There is hypointense T1 and hyperintense T2 signal in the bas e of the fourth metatarsal. This is 8-10 distant from the plantar wound. This would be unusual to hav e osteomyelitis in this location. This may be edema related to trauma event or altered mechanics of l oading. Cortical disruption is not identified. Plantar wound is seen most closely approximated to the second metatarsal head. Within this wound ther e is hypointense T1 and hyperintense T2 signal. No abscess or drainable fluid collection. Plain film and MRI imaging shows fixed extension positioning of the second-fifth MTP joints. This is most pronounced at the second MTP joint with the second proximal phalanx only partially contacts the dorsal most margin of the second metatarsal head articular surface. There are prominent degenerative changes at this joint and to a lesser degree at the third MTP joint. Hyperintense marrow is seen at t hese 2 joints. No abnormal signal on fat-suppressed T2 sequencing or T2 stir sequencing. No osteomyel itis findings confirmed in the bony structures most closely approximated to the soft tissue wound. Degenerative changes are present to a much lesser degree at the fourth and fifth MTP joints. No suspi cious marrow pattern. There is no suspicious marrow in the first metatarsal or within the tarsal bone s. IMPRESSION: Soft tissue wound is present plantar surface of the left foot most closely approximated to the second metatarsal head. No abscess or drainable fluid collections seen. No osteomyelitis findings confirmed in the bony structures of the second and third MTP joints. Abnormal marrow signal characteristics are present in the base of the fourth metatarsal. This is 8-10 cm from the wound. Osteomyelitis at this site would be very unusual given the absence of osteomyelit is at the wound site. This may be edema signal related to a traumatic event for altered mechanics of loading. No cortical disruption.
[2019-05-11] MEDS: LISINOPRIL 10 MG TAB PO SCH (08:20)
[2019-05-11] MEDS: hydroCHLOROthiazide 12.5 MG CAP PO SCH (08:20)
[2019-05-11] MEDS: HUMALOG MIX 75/25 100 UNITS/ML SQ SCH ×2 (08:21→20:02)
[2019-05-11] MEDS: ENOXAPARIN 40 MG/0.4 ML SQ SCH (08:21)
[2019-05-11] MEDS ORDERED: HOME MED 1 EA UNK (Lisinopril/Hydrochlorothiazide [Lisinopril-Hctz 10-12.5 Mg Tab] 1 TAB) PO SCH (09:00)
[2019-05-11] MEDS: NICOTINE 21 MG/PAT TD SCH (09:00)
[2019-05-11] MEDS ORDERED: NA CHLORIDE 0.9% 1,000 ML ONE (11:53)
[2019-05-11] MEDS ORDERED: COLLAGENASE 30 GM OINTMENT TOP ONE (12:28)
[2019-05-11] MEDS ORDERED: PROPOFOL 200 MG/20 ML VIAL IV ONE (13:23)
[2019-05-11] MEDS ORDERED: LIDOCAINE 2% MPF 5 ML VIAL ONE (13:24)
[2019-05-11] MEDS ORDERED: MIDAZOLAM HCL 2 MG/2 ML INJ ONE (13:24)
[2019-05-11] MEDS ORDERED: FENTANYL CITR 100 MCG/2 ML ONE (13:44)
[2019-05-11] MEDS ORDERED: EPHEDRINE SULF 50 MG/ML VIAL ONE (13:52)
--- NOTE | 2019-05-11 14:00 | P.OP ---
Preoperative diagnosis: Infected wound Left foot Postoperative diagnosis: same Primary procedure: Excisional Debridement Left wound 3x4cm to sq Anesthesia: gen Estimated blood loss: min Specimen: infected tissue Findings: as above Complications: None Transferred to: Recovery Room Condition: Good
[2019-05-11] MEDS: VANCOMYCIN 1.75 GM in NA CHLORIDE 0.9% 500 ML IVPB SCH (16:04)
[2019-05-11] MEDS: ATORVASTATIN 20 MG TAB PO SCH (20:00)
[2019-05-11] MEDS: HYDROCODONE/APAP 10/325 TAB PO SCH (20:01)
[2019-05-11] MEDS: DIAZEPAM 5 MG TABLET PO SCH (21:18)
[2019-05-11] MEDS: NA CHLORIDE 0.9% 1,000 ML IV SCH ×2 (22:08→22:20)
--- NOTE | 2019-05-12 02:02 | OP ---
Date of Procedure: 05/11/2019 Surgeon: Phil Soto MD Preoperative Diagnosis: Infected wound, left foot. Postoperative Diagnosis: Infected wound, left foot. Procedure: Excisional debridement, infected left foot wound 3 x 4 cm to subcutaneous tissue. Estimated Blood Loss: Minimal. Specimen: Infected tissue. Findings: As above. Anesthesia: General. Complications: None. Disposition: Patient tolerated the procedure in stable condition and taken to Recovery in good gener al condition. Description Of Procedure: Patient was brought to the OR and placed in supine position. General anes thesia was begun. Patient was prepped and draped in the usual sterile fashion. Marcaine 0.5% was in filtrated locally. 15 blade was used to excise the hypertrophic callus skin around the edges and the n necrotic tissue in the middle was sharply debrided with scissors and curette until good granulation tissue in the subcu space was identified. Area of debridement was 3 x 4 cm. Wound was irrigated. Bleeding was controlled with cautery. Collagenase dressing was applied. Patient tolerated the procedure in stable condition, taken to [facility] in good general condition. /MODL Voice ID: [id number] Report ID: [id number]
[2019-05-12] MEDS: HYDROCODONE/APAP 10/325 TAB PO SCH (04:15)
[2019-05-12] MEDS: MORPHINE 2 MG/ML SYR IV PRN (04:24)
[2019-05-12 06:38] LABS: Absolute Lymphocytes (CBC) 1.8 K/uL (0.7-4.9); Basophils % 0.5 % (0-1.3); Hematocrit 33.8 % (39.6-49.0); MPV 8.8 fL (7.6-11.3); RBC Red Blood Cell Count 3.93 M/uL (4.33-5.43)
[2019-05-12 06:43] LABS: Albumin 2.9 g/dL (3.4-5.0); Bilirubin Total 0.3 mg/dL (0.2-1.0); Potassium 4.2 mmol/L (3.5-5.1); Protein, Total 6.3 g/dL (6.4-8.2)
[2019-05-12] MEDS: INSULIN -REGULAR HUMAN 50 UNIT/0.5 ML ML SQ SCH (07:30)
[2019-05-12] MEDS: ENOXAPARIN 40 MG/0.4 ML SQ SCH (08:32)
[2019-05-12] MEDS: LISINOPRIL 10 MG TAB PO SCH (08:33)
[2019-05-12] MEDS: hydroCHLOROthiazide 12.5 MG CAP PO SCH (08:33)
[2019-05-12] MEDS: HUMALOG MIX 75/25 100 UNITS/ML SQ SCH (08:34)
[2019-05-12] MEDS: NICOTINE 21 MG/PAT TD SCH (08:35)
--- NOTE | 2019-05-12 11:56 | DS ---
Date of Discharge: 05/12/2019 Consultants: Dr. Soto with General Surgery. Procedures: Debridement of left foot wound. Admitting Diagnoses: 1.Left foot diabetic ulcer. 2.Cellulitis of the left foot. 3.Diabetes mellitus type 2 with long-term use of insulin with skin complications and foot ulcer. 4.Acute kidney injury. 5.Mixed hyperlipidemia. 6.Chronic pain syndrome. 7.Obesity, BMI 30. 8.Noncompliance. 9.Nicotine dependence. 10.Essential hypertension. Discharge Diagnoses: 1.Diabetic foot ulcer on the left foot with skin breakdown, callus, and necrosis. Status post I and D. 2.Cellulitis with diabetic foot on the left. 3.Acute kidney injury secondary to dehydration and prerenal azotemia, resolved. 4.Diabetes mellitus type 2 with long-term use of insulin with hyperglycemia and foot ulcer. 5.Mixed hyperlipidemia. 6.Chronic pain syndrome, on narcotics. 7.Obesity, BMI 30. 8.Essential hypertension, stable. 9.Nicotine dependence with cigarette smoking, uncomplicated. Counseled. 10.Noncompliance, counseled. Hospital Course: Patient is a 54-year-old male with past medical history of diabetes, hypertension, hyperlipidemia, came in with diabetic foot ulcer. His white count was normal. His creatinine was sl ightly elevated. He was started on IV antibiotics. Cultures did not show any growth to date. Wound cultures were growing out gram-positive rods. Blood cultures were growing out gram-positive rods. Tissue cultures are pending. Patient overall did well. Patient was then cleared for discharge and w as sent home in a stable condition. Activity: As tolerated. No driving or operating heavy machinery while on narcotics. Diet: Diabetic. Followup: Follow up with primary care physician in 2-3 days. Return to ER for worsening condition. Medications: As per medication reconciliation list. Physical Examination: General: Awake, alert, oriented x3. Obese male. CV: S1, S2. No murmurs. Respiratory: Moving air well bilaterally. Abdomen: Soft, nontender, nondistended. Positive bowel sounds. Extremities: No clubbing, cyanosis, or edema. Skin: Left foot 1st toe amputation and now with I and D of the plantar aspect, was clean, dry, intac t. Neurologic: Nonfocal. Total time spent discharging the patient was 34 minutes. SA/MODL Voice ID: [id number] Report ID: [id number]
--- NOTE | 2019-05-12 11:56 | PN ---
Date of Progress Note: 05/12/2019 Subjective: Patient is awake and alert. No complaints. Objective: Vital Signs: Stable. Afebrile. White count is normal. His blood culture 1 bottle shows gram-positive rods, I believe it to be a con taminant. His dressing is clean, dry, and intact. Assessment: Left foot infected wound. Recommendation: Patient cleared for discharge on oral antibiotics. Discussed the case with Dr. Lissy koenig Wound care as ordered. Follow up in the wound healing center upon discharge. /MODL Voice ID: [id number] Report ID: [id number]
--- NOTE | 2019-05-13 05:47 | DS ---
Date of Discharge: 05/12/2019 Consultants: Dr. Soto with General Surgery. Procedures: On 05/11/2019, excision and debridement, infected left foot wound 3 x 4 cm to subcutaneo us tissue. Admitting Diagnoses: 1.Diabetic foot ulcer on the left with skin breakdown and partial necrosis. 2.Cellulitis, diabetic foot. 3.Diabetes mellitus type 2 insulin-requiring with foot ulcer. 4.Acute kidney injury. 5.Hyperlipidemia. 6.Chronic pain syndrome, on narcotics. 7.Obesity, BMI 30. 8.Noncompliance. 9.Nicotine dependence with cigarette smoking, uncomplicated. 10.Essential hypertension. Discharge Diagnoses: 1.Diabetic foot ulcer on the left foot with skin breakdown, callus and necrosis status post I and D. 2.Cellulitis with diabetic foot on the left. 3.Acute kidney injury secondary to dehydration, resolved. 4.Diabetes mellitus type 2 with long-term use of insulin with foot ulcer and hyperglycemia, stable. 5.Mixed hyperlipidemia, stable. 6.Chronic pain syndrome on narcotics, stable. 7.Obesity, BMI 30. 8.Essential hypertension, stable. 9.Nicotine dependence with cigarette smoking, uncomplicated. Counseled. 10.Noncompliance. Counseled. Hospital Course: The patient is a 54-year-old male with past medical history of diabetes, hypertensi on, hyperlipidemia, came in with diabetic foot ulcer. He did not appear to be septic. His white blo od cell count was normal, however, he was found to be dehydrated and creatinine was elevated. He was started on IV fluids and IV antibiotics. His blood cultures did not show any growth. Wound culture s, Gram stain showed gram-positive rods, which is likely contaminant. The patient had I and D by Dr. Soto as mentioned above. He did well overall, and he was counseled regarding wound care, offloadin g the wound. Patient did request prescriptions for all of his home medications as he recently moved from [place] and does not have a primary care physician. He was given a list of PCPs and july gurrola to establish care with PCP within 1 week. The patient to follow up with Dr. Soto next week in [facility] either Thursday or during his clinic days. Medications: As per medication reconciliation list. Activity: No driving or operating heavy machinery while on narcotics. Physical Examination: GENERAL: Awake, alert, oriented x3. No acute distress. CV: S1, S2. No murmurs. RESPIRATORY: Moving air well bilaterally. No wheezing. GASTROINTESTINAL: Abdomen is soft, nontender, nondistended. Positive bowel sounds. EXTREMITIES: No clubbing, cyanosis, edema. SKIN: Left foot first toe amputation and plantar aspect incision site is clean, dry, intact. NEUROLOGIC: Nonfocal. Total time spent discharging the patient was 34 minutes. /SOFIYA Voice ID: [id number] Report ID: [id number]
== END 2019-05-12 11:14 | disposition home or self-care (01) | DRG 264 ==
LOC: ER 10:43 → ERHOLD 17:38 → 2ND 19:48 → OBSVTOIN 05-10 09:55
PROVIDERS: ADMIT Family Medicine; ATTEND Family Medicine
PROC: 0JBR0ZZ Excision of Left Foot Subcutaneous Tissue and Fascia, Open Approach (ICD-10-PCS; principal; 2009-05-11)
DX: E11.52 Type 2 diabetes mellitus with diabetic peripheral angiopathy with gangrene (principal); L03.116 Cellulitis of left lower limb; I96 Gangrene, not elsewhere classified; N17.9 Acute kidney failure, unspecified; E11.621 Type 2 diabetes mellitus with foot ulcer; L97.521 Non-pressure chronic ulcer of other part of left foot limited to breakdown of skin; E11.65 Type 2 diabetes mellitus with hyperglycemia; E11.628 Type 2 diabetes mellitus with other skin complications; E86.0 Dehydration; E78.2 Mixed hyperlipidemia; G89.4 Chronic pain syndrome; E66.09 Other obesity due to excess calories; Z91.19 Patient's noncompliance with other medical treatment and regimen; F17.210 Nicotine dependence, cigarettes, uncomplicated; I10 Essential (primary) hypertension; Z68.31 Body mass index [BMI] 31.0-31.9, adult; Z89.412 Acquired absence of left great toe
CPT/HCPCS: 36415; 80048; 80053; 80076; 81003; 81015; 82962; 83605; 83735; 84100; 85025; 85610; 87040; 87070; 87077; 87176; 87186; 87205; 88304; 93005; 93923; 94760; 96361; 96365; 96366; 96367; 99251; 99285; G0378; J1650; J2250; J2270; J2543; J2704; J3010; J3370; J3590; J7030